=== PATIENT | female | born 1950 | race African-American/Black ===

== ENCOUNTER → 2016-11-01 | Day surgery (SDC) | payer MEDICARE ==
[~2016-11-01] VITALS: Ht 169.9 cm; Wt 118.9 kg
== END | disposition home or self-care (01) ==
LOC: FAS 06:13
DX: G56.02 Carpal tunnel syndrome, left upper limb (principal); K44.9 Diaphragmatic hernia without obstruction or gangrene; E11.9 Type 2 diabetes mellitus without complications; Z79.4 Long term (current) use of insulin; Z86.73 Personal history of transient ischemic attack (TIA), and cerebral infarction without residual deficits; M10.9 Gout, unspecified; E66.9 Obesity, unspecified; Z68.41 Body mass index [BMI] 40.0-44.9, adult; J40 Bronchitis, not specified as acute or chronic; Z90.710 Acquired absence of both cervix and uterus; F17.210 Nicotine dependence, cigarettes, uncomplicated; Z88.3 Allergy status to other anti-infective agents
CPT/HCPCS: J2704; J3010